=== PATIENT | female | born 1970 | race Caucasian/White ===

== ENCOUNTER → 2021-04-25 13:29 | Outpatient (CLI) | payer BC, SELFPAY ==
--- NOTE | ~2021-04-25 | XR_ITS ---
EXAMINATION: XR elbow RT min 3V INDICATION: Right elbow pain TECHNIQUE: Four views of the right elbow were obtained. COMPARISON: None available FINDINGS: There is no fracture, dislocation, or subluxation. The joint space is normal. There is no j oint effusion. An exostosis is noted at the anteromedial aspect of the distal humeral shaft. IMPRESSION: 1. No acute osseous abnormality. Reviewed, dictated and finalized at location A.
== END ==
PROVIDERS: PCP Family Medicine; Visit Provider Physician Assistant
DX: M25.521 Pain in right elbow (principal)
CPT/HCPCS: 73080

== ENCOUNTER 2022-05-29 01:07 | Day surgery (SDC) | payer BC, SELFPAY ==
[2022-05-16 14:04] VITALS: BMI 22.8
[2022-05-29 10:34] VITALS: BP 110/64; PULSE 64; RESP 18; TEMP 36.6; O2SAT 100
[2022-05-29] MEDS: LACTATED RINGERS 1,000 ML 150 ML IV CONT (10:46)
--- NOTE | 2022-05-29 10:59 | WPDANESEPPF ---
Anes - Initial Pre Proc Eval Procedure: Operation Date: 05/29/22 13:45 Proposed Procedures p Screening Colonoscopy - Angel Alejo MD Date/Time: 05/29/22 10:59 Surgeon: Angel Alejo MD Pre Op Diagnosis: family hx colon ca, neoplasm screening Patient Data Age: 51 Gender: F Height: 1.73 m Weight: 68.9 kg Last Vital Signs Temp 97.9 F 05/29/22 10:34 Pulse 64 05/29/22 10:34 Resp 18 05/29/22 10:34 BP 110/64 05/29/22 10:34 Pulse Ox 100 05/29/22 10:34 O2 Del Method Room Air 05/29/22 10:34 Allergies Allergy/AdvReac Type Severity Reaction Status Date / Time No Known Allergies Allergy Mild Verified 05/29/22 10:31 Home Medications Medication Instructions Recorded Confirmed Type ascorbic acid (vitamin C) 1,000 mg 1 gm PO DAILY 05/15/20 05/16/22 History tablet cholecalciferol (vitamin D3) 50 50 mcg PO DAILY 05/15/20 05/16/22 History mcg (2,000 unit) capsule (Vitamin D3) progesterone micronized 200 mg 200 mg PO BID 05/15/20 05/16/22 History capsule blood-glucose meter #1 ea 12/04/20 05/16/22 Rx ascorbate calcium-calcium 1 tablet PO DAILY 05/16/22 05/16/22 History pantothen-quercet 100 mg-100 mg-50 mg tablet calcium polycarbophil 625 mg 1,250 mg PO DAILY 05/16/22 05/16/22 History tablet (FiberCon) cyanocobalamin (vitamin B-12) 500 1,000 mcg PO DAILY 05/16/22 05/16/22 History mcg tablet (B-12 DOTS) folic acid 800 mcg tablet 1,600 mcg PO DAILY 05/16/22 05/16/22 History letrozole 2.5 mg tablet 15 mg PO ONCE 05/16/22 05/16/22 History magnesium 200 mg tablet 200 mg PO DAILY 05/16/22 05/16/22 History melatonin 3 mg tablet 3 mg PO HS PRN Sleep 05/16/22 05/16/22 History omega 3-dha 120 mg-epa 180 mg-fish 2 cap PO DAILY 05/16/22 05/16/22 History oil 600 mg capsule (Extreme [place]-3) pyridoxine (vitamin B6) 500 mg 500 mg PO DAILY 05/16/22 05/16/22 History tablet vit [id number] <1mg-diet1 1 tablet PO DAILY 05/16/22 05/16/22 History tablet vitamin E 100 unit capsule 165 mg PO DAILY 05/16/22 05/16/22 History vitamin K2 45 mcg capsule 45 mcg PO DAILY 05/16/22 05/16/22 History Patient hx anesthesia problems: none Family hx anesthesia problems: none Results Review: All pre-operative results and documents have been reviewed as part of the pre-operative evaluation. [facility] Family History Family History Grandparent Diabetes mellitus Hypertension Family history of cardiovascular disease Cerebrovascular accident Family history of kidney disease Carcinoma of colon Family history of coronary artery disease Father Family history of malignant neoplasm of urinary bladder, Onset Age: 60 Social History Social History Smoking status: Never smoker Alcohol intake: current Drinks per week: 2 Substance use: never Substance use type: does not use Living arrangements: with family Spiritual care concerns: No Anes - Eval Final PreProcedure Day of Procedure 05/29/22 10:59 Patient weight: normal Heart: regular rate and rhythm Lungs: clear to auscultation Airway: Mallampati scale class II Neurological: alert and oriented Last oral intake: >/= 8 hours ASA classification: II Emergent: no Anesthetic plan: proceed Anesthesia type and monitoring: general GIVS and standard monitoring Results Review: All pre-operative results and documents have been reviewed as part of the pre-operative evaluation. Informed Consent: The patient's anesthetic plan and its attendant risks and benefits were discussed with the patient/family/POA. Questions were solicited and answers provided to the satisfaction of the patient/family/POA.
--- NOTE | 2022-05-29 11:27 | PM.IMHP ---
H&P: HPI History of Present Illness Date/Time: 05/29/22 11:27 Chief Complaint: Neoplasia screening. Narrative: This is a 51-year-old white female patient presents for screening colonoscopy. Patient reports her weight appetite bowel movements are normal. She occasionally will spot a small amount of bright red blood per rectum attributed to hemorrhoids in the past. She states that her bowel habits are relatively normal. Family history is significant for grandmother and an aunt to have had colon cancer. patient is unaware of any first-degree relatives with polyps or cancer. Review of Systems Review of Systems: Review of systems noncontributory. [facility] Family History Family History Grandparent Diabetes mellitus Hypertension Family history of cardiovascular disease Cerebrovascular accident Family history of kidney disease Carcinoma of colon Family history of coronary artery disease Father Family history of malignant neoplasm of urinary bladder, Onset Age: 60 Social History Social History Smoking status: Never smoker Alcohol intake: current Drinks per week: 2 Substance use: never Substance use type: does not use Living arrangements: with family Spiritual care concerns: No Meds Home Medications and Allergies Home Medications Medication Instructions Recorded Confirmed Type ascorbic acid (vitamin C) 1,000 mg 1 gm PO DAILY 05/15/20 05/16/22 History tablet cholecalciferol (vitamin D3) 50 50 mcg PO DAILY 05/15/20 05/16/22 History mcg (2,000 unit) capsule (Vitamin D3) progesterone micronized 200 mg 200 mg PO BID 05/15/20 05/16/22 History capsule blood-glucose meter #1 ea 12/04/20 05/16/22 Rx ascorbate calcium-calcium 1 tablet PO DAILY 05/16/22 05/16/22 History pantothen-quercet 100 mg-100 mg-50 mg tablet calcium polycarbophil 625 mg 1,250 mg PO DAILY 05/16/22 05/16/22 History tablet (FiberCon) cyanocobalamin (vitamin B-12) 500 1,000 mcg PO DAILY 05/16/22 05/16/22 History mcg tablet (B-12 DOTS) folic acid 800 mcg tablet 1,600 mcg PO DAILY 05/16/22 05/16/22 History letrozole 2.5 mg tablet 15 mg PO ONCE 05/16/22 05/16/22 History magnesium 200 mg tablet 200 mg PO DAILY 05/16/22 05/16/22 History melatonin 3 mg tablet 3 mg PO HS PRN Sleep 05/16/22 05/16/22 History omega 3-dha 120 mg-epa 180 mg-fish 2 cap PO DAILY 05/16/22 05/16/22 History oil 600 mg capsule (Extreme [place]-3) pyridoxine (vitamin B6) 500 mg 500 mg PO DAILY 05/16/22 05/16/22 History tablet vit [id number] <1mg-diet1 1 tablet PO DAILY 05/16/22 05/16/22 History tablet vitamin E 100 unit capsule 165 mg PO DAILY 05/16/22 05/16/22 History vitamin K2 45 mcg capsule 45 mcg PO DAILY 05/16/22 05/16/22 History Allergies Allergy/AdvReac Type Severity Reaction Status Date / Time No Known Allergies Allergy Mild Verified 05/29/22 10:31 Vital Signs Vital Signs - 24 hr 05/29/22 10:34 Temperature 97.9 F Pulse Rate 64 Respiratory Rate 18 Blood Pressure 110/64 Pulse Oximetry 100 Oxygen Delivery Room Air Exam Narrative: Physical exam reveals patient to be alert. Vital signs stable. HEENT exam is unremarkable. Patient is anicteric. Lungs are clear to auscultation and percussion. Heart is without murmur or extra sounds. Abdominal exam bowel sounds are present soft nontender with no hepatosplenomegaly. Digital external rectal exam is normal. Assessment and Plan Assessment and plan (1) Colon cancer screening: Code(s): Z12.11 - Encounter for screening for malignant neoplasm of colon Status: Acute Assessment and Plan: Patient presents for screening colonoscopy. She has distant family members with colon cancer. Plan for high-fiber diet. (2) Rectal bleeding: Code(s): K62.5 - Hemorrhage of anus and rectum Status: Acute
[2022-05-29 11:55] VITALS: BP 97/56; PULSE 62; RESP 17; O2SAT 100
[2022-05-29 12:05] VITALS: BP 107/62; PULSE 60; RESP 18; O2SAT 100
[2022-05-29 12:15] VITALS: BP 116/71; PULSE 54; RESP 20; O2SAT 100
== END 2022-05-29 12:45 | disposition home or self-care (01) ==
PROVIDERS: Visit Provider Internal Medicine Gastroenterology
PROC: 0DJD8ZZ Inspection of Lower Intestinal Tract, Via Natural or Artificial Opening Endoscopic (ICD-10-PCS; CPT 45378; principal; 2022-05-29 13:45)
DX: Z12.11 Encounter for screening for malignant neoplasm of colon (principal); K62.5 Hemorrhage of anus and rectum; K64.8 Other hemorrhoids; Z80.0 Family history of malignant neoplasm of digestive organs
CPT/HCPCS: 45378; J2704; J7120

== ENCOUNTER 2022-08-13 10:07 | Outpatient (CLI) | payer BC, SELFPAY ==
--- NOTE | ~2022-08-13 | US_ITS ---
EXAMINATION: US OB <= 14 weeks fetus DATE: 08/13/2022 11:11 INDICATION: Threatened miscarriage. TECHNIQUE: Real-time transabdominal and transvaginal pelvic ultrasound was performed. COMPARISON: None. FINDINGS: TRANSABDOMINAL ULTRASOUND: The uterus measures 9.8 x 6.6 x 5.5 cm. TRANSVAGINAL ULTRASOUND: The endometrial complex measures 2.1 cm in thickness. There are 2 cysts in t he endometrial complex with mean diameters of 7 mm and 6 mm, respectively. No yolk sac or pole is identified. There are nabothian cysts in the cervix. The right ovary is not visualized. The left o vary measures 3.0 x 1.9 x 2.1 cm. There is no free fluid in the pelvis. IMPRESSION: 1. Two cysts in the endometrial complex which are indeterminate for gestational sacs. Spontaneous ab ortion and ectopic are not excluded. Serial beta hCGs are recommended. Reviewed, dictated and finalized at location A. CHECKERS AND CASHIERS SUPERVISOR IMPRESSION: 1. Two cysts in the endometrial complex which are indeterminate for gestationa l sacs. Spontaneous and ectopic are not excluded. Serial bet a hCGs are recommended.
== END 2022-08-13 10:08 | disposition home or self-care (01) ==
DX: O20.0 Threatened abortion (principal); Z3A.00 Weeks of gestation of pregnancy not specified
CPT/HCPCS: 76801

== ENCOUNTER → 2023-09-10 07:50 | Outpatient (CLI) | payer BC, SELFPAY ==
--- NOTE | ~2023-09-10 | US_ITS ---
EXAMINATION: US pelvic complete w TV DATE: 09/10/2023 08:19 INDICATION: Pelvic pain TECHNIQUE: Multiple transabdominal and endovaginal sonographic images of the pelvis were obtained. COMPARISON: 08/13/2022 FINDINGS: The uterus measures 9.1 x 4.8 x 4.0 cm. The endometrial complex measures 5 mm. The ovaries are not visualized however no adnexal abnormality is seen. There is no free fluid in the pelvis. IMPRESSION: 1. No sonographic correlate for the patient's symptoms. Reviewed, dictated and finalized at location L. ORIZATION SPECIALIST
== END ==
PROVIDERS: PCP Family Medicine; Visit Provider Obstetrics & Gynecology
DX: R10.2 Pelvic and perineal pain (principal)
CPT/HCPCS: 76830; 76856

== ENCOUNTER 2025-05-04 11:25 | Emergency (ER) | payer BC, SELFPAY ==
--- OUTSIDE RECORDS SUMMARY | 2025-05-04 11:27 | XMS_ITS | Encounter Summary ---
Author Organization [facility] Address [address] [place] [address] Care Team Providers Care Director Dance Name Role Phone Not Found, Stl Primary Care Provider Unavailabl e Encounter Details Date Type Department Care Team (Late st Contact Info) Description 06/20/2003 Outpatient Historical [facility] Internal [facility] [place] [address] [id number] Arsenio Romano MD NO ADDRESS ON FILE Social History Tobacco Use Types Packs/Day Years Used Date Smoking Tobacco: Never Assessed Comments Unknown Sex and Gender Information Value Date Recorded Sex Assigned at Not on file Legal Sex Female 4:55 AM FELT CHECKER Gender Identity Not on file Sexual Orientation Not on file documented as of this encounter Plan of Treatment Upcoming Encounters Date Type Department Care Team (Late st Contact Info) Description 06/01/2025 2:00 PM CDT Office Visit [facility] Primary [facility] [place] [address] [place] [address] Shukri Moore MD [address] [place] [address] documented as of this encounter Visit Diagnoses Not on filedocumented in this encounter Care Teams Director Dance Relationship Specialty Start Date End Date Not Found, Stl NO ADDRESS ON FILE PCP - General 10/11/12 documented as of this encounter
--- OUTSIDE RECORDS SUMMARY | 2025-05-04 11:27 | XMS_ITS | Clinical Summary ---
Author Organization [facility] [address] [place] [address] Phone Care Team Providers Care Reinforced Ironworker Name Role Phone Not Found, Stl Primary Care Provider Unavailabl e Allergies No known active allergies Medications loratadine (CLARITIN) 10 mg tablet Take 10 mg by mouth daily. Active OTHER Adrenal LF capsule 3 times daily Active OTHER Chaste tree,tab once daily Active OTHER Brevail,cap once daily Active OTHER Congaplex caps Activ e ASCORBIC ACID, VITAMIN C, ORAL Take by mouth. Active Zinc Gluconate 30 mg Tablet Take by mouth. Ac tive Active Problems No known active problems Encounters Date Type Department Care Team Description 05/02/2025 External Device Data STL ABSTRACTION Provider, Abstract 04/12/2025 External Device Data STL ABSTRACTION Provider, Abstract 04/12/2025 External Device Data STL ABSTRACTION Provider, Abstract 03/15/2025 External Device Data STL ABSTRACTION Provider, Abstract 02/21/2025 External Device Data STL ABSTRACTION Provider, Abstract 02/16/2025 External Device Data STL ABSTRACTION Provider, Abstract 02/15/2025 External Device Data STL ABSTRACTION Provider, Abstract from Last 3 Months Family History Medical History Relation Name Comments Cancer Father bladder cancer Heart Disease Maternal Grandfather Hypertension Maternal Grandfather Other Maternal Grandfather osteopo rosis Colon Cancer Maternal Grandmother Heart Disease Maternal Grandmother Hypertension Maternal Grandmother Colon Cancer Paternal Grandfather Heart Disease Paternal Grandfather Hypertension Paternal Grandfather Labor Paternal Grandfather Heart Disease Paternal Grandmother Hypertension Paternal Grandmother Other Paternal Grandmother osteopo rosis Breast Cancer Neg Hx Ovarian Cancer Neg Hx Relation Name Status Comments Father Maternal Grandfather Maternal Grandmother Paternal Grandfather Paternal Grandmother Social History Tobacco Use Types Packs/Day Years Used Date Smoking Tobacco: Never Smokeless Tobacco: Never Alcohol Use Standard Drinks/Week Comments Yes 0 (1 standard drink = 0.6 oz pur e alcohol) 0-2/week Comments No Sex and Gender Information Value Date Recorded Sex Assigned at Not on file Legal Sex Female 4:55 AM MARKET INVESTIGATOR Gender Identity Not on file Sexual Orientation Not on file Last Filed Vital Signs Vital Sign Reading Time Taken Comments Blood Pressure 120/74 10/17/2024 1:52 PM MARKET INVESTIGATOR Pulse 86 10/12/2012 2:27 PM MARKET INVESTIGATOR Temperature - - Respiratory Rate - - Oxygen Saturation - - Inhaled Oxygen Concentration - - Weight 72.6 kg (160 lb) 10/17/2024 1:52 PM MARKET INVESTIGATOR Height 172.7 cm (5' 8) 10/17/2024 1:52 PM MARKET INVESTIGATOR Body Mass Index 24.33 10/17/2024 1:52 PM MARKET INVESTIGATOR Plan of Treatment Upcoming Encounters Date Type Department Care Team (Late st Contact Info) Description 06/01/2025 2:00 PM CDT Office Visit [facility] [place] [address] [place] [address] Shukri Moore MD [address] [place] [address] Health Maintenance Due Date Last Done Comments DTAP/TDAP/TD VACCINES (1 - Tdap) 1990 HEPATITIS B VACCINES (1 of 3 - 19+ 3-dose series) 1990 HPV/Cotest (21-29) 1992 HPV/Cotest (30-65) 2001 FIT-DNA Q 3 years 2016 FIT/FOBT Q 1 year 2016 Flex Sig/CT Colonography Q 5 years 2016 ZOSTER VACCINE (1 of 2) 2021 INFLUENZA VACCINE (#1) 2025 09/27/2016 BREAST CANCER SCREENING 11/24/2025 11/24/19 25, 11/11/2024, 09/30/2023, Additional history exists CERVICAL CANCER SCREENING 08/18/2026 PAP SMEAR 08/18/2026 08/18/2023, 07/29, 06/08/2017, Additional history exists COLORECTAL SCREENING 03/26/2027 03/26/2017, 03/26/20 17 Colorectal Cancer Screening 03/26/2027 Procedures Procedure Name Priority Date/Time Associated Diagnosis Comments MAMMO 3D HUNTER SCREEN BILAT W OR WO CAD Routine 11/24/2024 Well woman exam with routine gynecological exam Encounter for screening mammogram for breast cancer from Last 3 Months or Most Recently Relevant to Health Maintenance Results * MAMMO 3D HUNTER SCREEN BILAT W OR WO CAD (11/24/2024) Anatomical Region Laterality Modality Breast Bilateral Mammography Martha Warren MD MAMMO ORDERABLES Final Result from Last 3 Months or Most Recently Relevant to Health Maintenance Insurance BS [employer] RX [employer]ER[employer] Commercial Care Teams Reinforced Ironworker Relationship Specialty Start Date End Date Not Found, Stl NO ADDRESS ON FILE PCP - General 10/11/12
--- OUTSIDE RECORDS SUMMARY | 2025-05-04 11:27 | XMS_ITS | Clinical Summary ---
Author Organization [facility] Address [address], [facility] [address] [place] [address] Phone Care Team Providers Care Cpc Name Role Phone Mahad Mora MD Primary Care Provider [phone] Angel Spaulding DO Unavailable [phone] Allergies No known active allergies Medications polyethylene glycol (MIRALAX) Powder Use entire 255g bottle with 64oz of clear liquid as directed for colonoscopy prep. 255 g 7 Active fluticasone (FLONASE) 50 MCG/ACT Suspension 1-2 Sprays by Nasal route daily. Use in each nostril as directed. Active Loratadine 10 MG Capsule Take 1 Cap by mouth daily. Active psyllium 0.52 GM Capsule Take by mouth. Acti ve cyanocobalamin 1000 MCG Tablet Take 1,000 mcg by mouth daily. Active Vitamin B-6 (PYRIDOXINE) 100 MG Tablet Take by mouth. A ctive Cholecalciferol (VITAMIN D-3 SUPER STRENGTH) 2000 UNIT Tablet Take by mouth. Activ e vitamin E (TOCOPHEROL) 200 UNIT Capsule Take 200 Units by mouth daily. Active Ascorbic Acid (VITAMIN C) 1000 MG Tablet Take by mouth. Active folic acid (FOLVITE) 800 MCG Tablet Take 800 mcg by mouth daily. Active Vit-Fe Fumarate-FA (NATACHA-RUL VITAMINS) 28-0.8 MG Tablet Take by mouth. Activ e Family History Medical History Relation Name Comments Bladder cancer Father Colon Cancer Maternal Grandmother Colon Cancer Paternal Grandfather Relation Name Status Comments Father Maternal Grandmother Paternal Grandfather Social History Tobacco Use Types Packs/Day Years Used Date Smoking Tobacco: Never Smokeless Tobacco: Never Alcohol Use Standard Drinks/Week Comments Yes 0 (1 standard drink = 0.6 oz pur e alcohol) Rare Comments Unknown Sex and Gender Information Value Date Recorded Sex Assigned at Not on file Legal Sex Female 11:28 AM CDT Gender Identity Not on file Sexual Orientation Not on file Plan of Treatment Health Maintenance Due Date Last Done Comments Hepatitis C Virus (HCV) Screening 1971 TdaP Immunization 1971 Hepatitis B Immunization (1 of 3 - 19+ 3-dose series) 1990 Pap Smear 1992 Cervical Cancer Screening (CCS) 2001 HPV/Cotest 2001 Cologuard 2016 Immunochemical Fecal Occult Blood 2016 Pneumococcal Immunization (5 0+ years) (1 of 1 - PCV) 2021 Zoster Immunization (1 of 2) 2021 Colonoscopy 03/26/2022 03/26/2017 Colorectal Cancer Screening 03/26/2022 SARS-COV-2 Immunization (1 - 2023- season) 2024 Influenza Immunization (#1) 2025 Respiratory Syncytial Virus (RSV) Immunization (Adult) (1 - 1-dose 75+ series) 2046 Human Papillomavirus (HPV) Immunization Aged Out No longer eligible b ased on patient's age to complete this topic Meningococcal Immunization (ACWY) Aged Out No longer eligible based on patient's age to complete this topic Rotavirus Immunization Aged Out No lo nger eligible based on patient's age to complete this topic Procedures Procedure Name Priority Date/Time Associated Diagnosis Comments COLONOSCOPY Routine 03/26/2017 from Last 3 Months or Most Recently Relevant to Health Maintenance Results * COLONOSCOPY (03/26/2017) Mahad Mora MD PROCEDURE/MINOR SURGICAL OR DERABLES Final Result from Last 3 Months or Most Recently Relevant to Health Maintenance Insurance [facility] Care Teams Cpc Relationship Specialty Start Date End Date Mahad Mora MD [address] [place] [address] PCP - General Family Medicine 03/11/17 Angel Spaulding DO [address] [place] [address] Gastroenterology 03/30/17
--- OUTSIDE RECORDS SUMMARY | 2025-05-04 11:27 | XMS_ITS | Encounter Summary ---
Author Organization [facility] Address [address] [place] [address] Care Team Providers Care Precision Devices Inspector/Tester Name Role Phone Not Found, Stl Primary Care Provider Unavailabl e Encounter Details Date Type Department Care Team (Late st Contact Info) Description 05/02/2025 External Device Data STL ABSTRACTION Provider, Abstract NO ADDRESS ON FILE Social History Tobacco Use Types Packs/Day Years Used Date Smoking Tobacco: Never Smokeless Tobacco: Never Alcohol Use Standard Drinks/Week Comments Yes 0 (1 standard drink = 0.6 oz pur e alcohol) 0-2/week Comments No Sex and Gender Information Value Date Recorded Sex Assigned at Not on file Legal Sex Female 4:55 AM INSIDE ACCOUNT REPRESENTATIVE Gender Identity Not on file Sexual Orientation Not on file documented as of this encounter Plan of Treatment Upcoming Encounters Date Type Department Care Team (Late st Contact Info) Description 06/01/2025 2:00 PM CDT Office Visit [facility] [place] [address] [place] [address] Shukri Moore MD [address] [place] [address] documented as of this encounter Visit Diagnoses Not on filedocumented in this encounter Additional Health Concerns Assessment Noted Time PHQ-9 Depression Total Score: 1 10/17/19 25 2:16 PM INSIDE ACCOUNT REPRESENTATIVE documented as of this encounter Care Teams Precision Devices Inspector/Tester Relationship Specialty Start Date End Date Not Found, Stl NO ADDRESS ON FILE PCP - General 10/11/12 documented as of this encounter
--- OUTSIDE RECORDS SUMMARY | 2025-05-04 11:27 | XMS_ITS | Clinical Summary ---
Author Organization [facility] Address [address] [place] [address] Care Team Providers Care Tree Fruit And Nut Crops Farmer Name Role Phone Stanley Mena MD Unavailable [phone] Regla Redmond MD Unavailable Unavailabl e Source Comments [facility],non-owned Affiliates and Associated Physician Practices is amultiple site organization consisting of ambulatory clinics and hospital sitesin [place], [place], [place] and [place]. This disclosure is being madepursuant to the Care Everywhere program and may not contain all information available regarding this patient. Last updated 18.[facility] Allergies Active Allergy Reactions Criticality Noted Date Comments Latex Rash Medium 08/18/2023 Medications * Be aware that medications may not be up to date on this document. Alwaysverify current medications with the patient. Sodium Chloride-Xylito l (XLEAR SINUS CARE SPRAY NA) Activ e fluticasone propionate (Flonase) 50 MCG/ACT nasal spray [place] 1 (one) spray to 2 (two) sprays into the nose once daily Active folic acid 800 MCG tablet Take 1 (one) tablet by mouth once daily Active loratadine (Claritin) 10 MG tablet Take 1 (one) tablet by mouth once daily 09/28/2008 Active Progesterone (Prometrium) 200 MG capsuleIndicati ons:Abnormal uterine bleeding Take 1 (one) capsule by mouth at bedtime as directed 30 capsule 3 08/18/2023 Active Active Problems Problem Noted Date Diagnosed Date S/P laparoscopy 08/19/2022 Ectopic , unspecifi ed location, unspecified whether intrauterine present 2022 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 Abnormal uterine bleeding 11/15/2021 Advanced maternal age in multigravida, first tri mester 03/05/2020 Missed ab 03/05/2020 Encounter to determine viability of pregna ncy 03/05/2020 Immunizations Immunization Administration Dates Next Due FLU VACCINE QUAD IIV4 PF ID 09/27/2016 Family History Medical History Relation Name Comments Cancer - Bladder Father Other - Cardiac Maternal Grandfather Cancer - Colon Maternal Grandmother Diabetes; unknown type Paternal Grandfather Other - Cardiac Paternal Grandfather Relation Name Status Comments Father Maternal Grandfather Maternal Grandmother Paternal Grandfather Social History Tobacco Use Types Packs/Day Years Used Date Smoking Tobacco: Never Smokeless Tobacco: Never Tobacco Cessation:Counseling Given: Not Answered Alcohol Use Standard Drinks/Week Comments Never 0 (1 standard drink = 0.6 oz pur e alcohol) Comments No Sex and Gender Information Value Date Recorded Sex Assigned at Not on file Legal Sex Female 4:12 PM BLADE ALIGNER Gender Identity Not on file Sexual Orientation Not on file Last Filed Vital Signs Vital Sign Reading Time Taken Comments Blood Pressure 116/72 08/18/2023 2:16 PM BLADE ALIGNER Pulse 66 08/19/2022 1:30 PM BLADE ALIGNER Temperature 36.8 C (98.2 F) 08/19/2022 1:30 PM BLADE ALIGNER Respiratory Rate 16 08/19/2022 1:00 PM BLADE ALIGNER Oxygen Saturation 100% 08/19/2022 1:30 PM BLADE ALIGNER Inhaled Oxygen Concentration - - Weight 73.5 kg (162 lb) 08/18/2023 2:16 PM BLADE ALIGNER Height 172.7 cm (5' 8) 2022 9:50 PM BLADE ALIGNER Body Mass Index 24.63 2022 9:50 PM BLADE ALIGNER Plan of Treatment Health Maintenance Due Date Last Done Comments COLOGUARD (AGES 45-75) - COLON CA SCREENING 1971 COLON MONITORING 1971 COLONOSCOPY - COLON CA SCREENING 1971 CT COLONOGRAPHY - COLON CA SCREENING 1971 Colorectal Cancer Screening 1971 FIT - COLON CA SCREENING 1971 FLEX SIG - COLON CA SCREENING 1971 LIPID TESTING 1971 HIV SCREENING 1986 HEPATITIS C SCREENING 08/12/1989 DTAP/TDAP/TD VACCINES (1 - Tdap) 1990 HEPATITIS B VACCINE (1 of 3 - 19+ 3-dose series) 1990 PNEUMOCOCCAL VACCINE 50+ (1 of 1 - PCV) 2021 ZOSTER VACCINE (1 of 2) 2021 COVID-19 VACCINE (1 - 2023- season) 2024 DEPRESSION SCREENING 09/28/2024 MAMMOGRAM 09/30/2024 09/30/2023, 11/2023, 09/30/2023 (Done Outside Per Report), Additional history exists INFLUENZA VACCINE (#1) 2025 09/27/2016 PAP with HPV 08/18/2028 08/18/2023, 08/12/2022 HIB VACCINE Aged Out No longer eligi ble based on patient's age to complete this topic HPV VACCINE Aged Out No longer eligi ble based on patient's age to complete this topic MENINGOCOCCAL (Group B) VACCINE SHARED DECISION-MAKING Aged Out No longer eligible based on patient's age to complete this topic MENINGOCOCCAL GROUPS A/C/Y/W VACCINE Aged Out No longer eligible based on patient's age to complete this topic Procedures Procedure Name Priority Date/Time Associated Diagnosis Comments PAP IG LB RFLX HPV APTIMA ASCU Routine 08/18/2023 3:51 PM BLADE ALIGNER Well woman exam with routine gynecological exam from Last 3 Months or Most Recently Relevant to Health Maintenance Results * PAP IG LB RFLX HPV APTIMA ASCU (08/18/2023 3:51 PM BLADE ALIGNER) Diagnosis [facility] INSURANCE BILL Comment:NEGATIVE FOR INTRAEP ITHELIAL LESION OR MALIGNANCY. Specimen Adequacy [facility] INSURANCE BILL Comment: Satisfactory for evaluation. Endocervical and/or squamous metaplastic cells (endocervical component) are present. Clinician Provided ICD10 [facility] INSURANCE BILL Comment: Z01.419 R10.2 N93.9 Performed by [facility] INSURANCE BILL Comment:Vaibhav Bauman Cytot echnologist (ASCP) Comment . [facility] INSURANCE BILL Note [facility] INSURANCE BILL Comment: The Pap smear is a screening test designed to aid in the detection of premalignant and malignant conditions of the uterine cervix. It is not a diagnostic procedure and should not be used as the sole means of detecting cervical cancer. Both false-positive and false-negative reports do occur. . [facility] CPT Code Automation [facility] INSURANCE BILL Comment: This liquid based ThinPrep(R) pap test was screened with the use of an image guided system. Note [facility] INSURANCE BILL Comment: The HPV DNA reflex criteria were not met with this specimen result therefore, no HPV testing was performed. . Pathology/Cytolog y PART OF UTERINE CERVIX / Unknown 08/18/2023 3:51 PM BLADE ALIGNER 08/18/2023 Narrative [facility] INSURANCE BILL - 08/22/2023 12:06 AM BLADE ALIGNER Source.............Cervix No. of containers..01 ThinPrep Vial Resulting Agency Comment Lab Testing performed at: [address] [id number] Stanley Mena MD LAB - PATHOLOGY/CYTOLOGY VANDANA JOINER Final Result [facility] B[facility] [address] [place] [address] from Last 3 Months or Most Recently Relevant to Health Maintenance [place] [address] ANTHEM Care Teams Tree Fruit And Nut Crops Farmer Relationship Specialty Start Date End Date Stanley Mena MD [facility] [address] [facility] [address] [place] [address] Broom Worker Obstetrics and Gynecology 11/13/21 Regla Redmond MD [address] [place] [address] Obstetrics and Gynecology 08/12/22
--- OUTSIDE RECORDS SUMMARY | 2025-05-04 11:27 | XMS_ITS | Encounter Summary ---
Author Organization [facility] Address [address] [place] [address] Care Team Providers Care Steel Pickler Name Role Phone Not Found, Stl Primary Care Provider Unavailabl e Encounter Details Date Type Department Care Team (Latest Contact Info) Description 03/28/2003 Outpatient Historical HIS [facility] AKRSTEN Romano, MD Arsenio NO ADDRESS ON FILE SKIN SENSATION DISTURB (Primary Dx) Social History Tobacco Use Types Packs/Day Years Used Date Smoking Tobacco: Never Assessed Comments Unknown Sex and Gender Information Value Date Recorded Sex Assigned at Not on file Legal Sex Female 4:55 AM AVIATION SUPPORT EQUIPMENT REPAIRER Gender Identity Not on file Sexual Orientation Not on file documented as of this encounter Plan of Treatment Upcoming Encounters Date Type Department Care Team (Late st Contact Info) Description 06/01/2025 2:00 PM CDT Office Visit [facility] Primary Care [place] [address] [place] [address] Shukri Moore MD [address] [place] [address] documented as of this encounter Visit Diagnoses Diagnosis Disturbance of skin sensation- Primary documented in this encounter Care Teams Steel Pickler Relationship Specialty Start Date End Date Not Found, Stl NO ADDRESS ON FILE PCP - General 10/11/12 documented as of this encounter
--- OUTSIDE RECORDS SUMMARY | 2025-05-04 11:28 | XMS_ITS | Encounter Summary ---
Author Organization [facility] Address [address] [place] [address] Care Team Providers Care Medical Genetics Director Name Role Phone Not Found, Stl Primary Care Provider Unavailabl e Encounter Details Date Type Department Care Team (Late st Contact Info) Description 03/28/[address] [facility] Internal Medicine Medical [place] [address] [id number] Arsenio Romano MD NO ADDRESS ON FILE Social History Tobacco Use Types Packs/Day Years Used Date Smoking Tobacco: Never Assessed Comments Unknown Sex and Gender Information Value Date Recorded Sex Assigned at Not on file Legal Sex Female 4:55 AM PREFABRICATED HOUSES TRIMMER Gender Identity Not on file Sexual Orientation Not on file documented as of this encounter Plan of Treatment Upcoming Encounters Date Type Department Care Team (Late st Contact Info) Description 06/01/2025 2:00 PM CDT Office Visit [facility] Primary Care [place] [address] [place] [address] Shukri Moore MD [address] [place] [address] documented as of this encounter Visit Diagnoses Not on filedocumented in this encounter Care Teams Medical Genetics Director Relationship Specialty Start Date End Date Not Found, Stl NO ADDRESS ON FILE PCP - General 10/11/12 documented as of this encounter
--- OUTSIDE RECORDS SUMMARY | 2025-05-04 11:28 | XMS_ITS | Clinical Summary ---
Author Organization [facility] Address [address] [place] [address] Care Team Providers Care Field Administrator Name Role Phone Martha Lawrence MD Unavailable [phone] No, Physician Primary Care Provider [phone] Family History Medical History Relation Name Comments Colon cancer Maternal Grandmother Colon a denocarcinoma - (Added by TW Conv) Colon cancer Paternal Grandfather Colon a denocarcinoma - (Added by TW Conv) Relation Name Status Comments Maternal Grandmother Paternal Grandfather Social History Tobacco Use Types Packs/Day Years Used Date Smoking Tobacco: Never Comments Unknown Sex and Gender Information Value Date Recorded Sex Assigned at Not on file Legal Sex Female 4:13 AM REAL ESTATE INTERN Gender Identity Not on file Sexual Orientation Not on file Obstetrics History Plan of Treatment Health Maintenance Due Date Last Done Comments Cervical Cancer Screening 1971 Colon Cancer Screening-Colonoscopy 1971 Depression Screening 1971 Hepatitis C Screening 1971 Hepatitis B Screening 1989 Regular Well Visit/Exam 18-64 1989 DTaP/Tdap/Td Vaccine (1 - Tdap) 12/11/2005 12/10/2005 Zoster Vaccine (1 of 2) 2021 Influenza Vaccine (#1) 2025 8, 09/27/2016, 09/02/2012 Breast Cancer Screening-Mammogram 11/11/2025 11/11/2024, 11/11/2024, 09/30/2023, Additional history exists Pneumococcal vaccine <65 Aged Out No longer eligible based on patient's age to complete this topic Procedures Procedure Name Priority Date/Time Associated Diagnosis Comments SCREENING MAMMOGRAM BILATERAL W JOSEF Schedule Routine, Read Routine (OP Routine) 11/11/2024 12:59 PM REAL ESTATE INTERN Screening mammogram, encounter for from Last 3 Months or Most Recently Relevant to Health Maintenance Results * Screening Mammogram Bilateral W Josef (11/11/2024 12:59 PM REAL ESTATE INTERN) Anatomical Region Laterality Modality Breast Bilateral Mammography Narrative 11/14/2024 3:48 PM REAL ESTATE INTERN Mammogram Technique: Bilateral Digital Breast Tomosynthesis, Bilateral C-view 2D Screening mammogram. Views obtained: bilateral craniocaudal and bilateral mediolateral oblique. Computer Aided Detection was performed. Mammogram Findings: The present examination has been compared to prior imaging studies performed at [facility] on 04/24/2021, 06/24/2022 and 09/30/2023. The breasts are heterogeneously dense, which may obscure small masses. There is a focal asymmetry in the middle upper outer quadrant of the right breast. There is no suspicious abnormality in the left breast. Impression: Focal asymmetry in the right breast requires additional evaluation. Diagnostic mammogram and possible ultrasound of the right breast are recommended at this time. OVERALL FINAL ASSESSMENT: BI-RADS CATEGORY 0: Incomplete: Need additional imaging evaluation. Procedure Note Jo-Ann Plaza MD - 11/14/2024 Mammogram Technique: Bilateral Digital Breast Tomosynthesis, Bilateral C-view 2D Screening mammogram. Views obtained: bilateral craniocaudal and bilateral mediolateral oblique. Computer Aided Detection was performed. Mammogram Findings: The present examination has been compared to prior imaging studies performed at [facility] on 04/24/2021, 06/24/2022 and 09/30/2023. The breasts are heterogeneously dense, which may obscure small masses. There is a focal asymmetry in the middle upper outer quadrant of theright breast. There is no suspicious abnormality in the left breast. Impression: Focal asymmetry in the right breast requires additional evaluation. Diagnostic mammogram and possible ultrasound of the right breast are recommended at this time. OVERALL FINAL ASSESSMENT: BI-RADS CATEGORY 0: Incomplete: Need additional imaging evaluation. us Self Screening Mammogram IMG MAMMO PROCEDURES Fi nal Result from Last 3 Months or Most Recently Relevant to Health Maintenance [place] [employer] [place] [employer] [place] [employer] [place] Care Teams Field Administrator Relationship Specialty Start Date End Date No, Physician PCP - General 11/16/24 [place] [id number] [address] Obstetrics and Gynecology 11/11/24
[2025-05-04 11:29] VITALS: BP 131/70; PULSE 64; RESP 16; TEMP 36.3; O2SAT 100
--- NOTE | 2025-05-04 11:35 | ECG_ITS ---
Test Date: 2025-05-04 11:54:15 Measurements Intervals [place] Rate: 67 P: 81 OR: 163 QRS: 58 QRSD: 95 T: 48 QT: 382 QTc: 405 Interpretive Statements SINUS RHYTHM LEFT ATRIAL ENLARGEMENT INCOMPLETE RIGHT BUNDLE BRANCH BLOCK BASELINE ARTIFACT- I, III, AVL BORDERLINE ECG No previous ECG available for comparison Electronically Signed On 05-04-2025 12:10:41 CDT by Osito Reyes D.O.
[2025-05-04 11:49] VITALS: RESP 18
--- OUTSIDE RECORDS SUMMARY | 2025-05-04 12:27 | XMS_ITS | Clinical Summary ---
Author Organization [facility] [address] Address [address] [place] [address] Phone Care Team Providers Care Label Press Operator Name Role Phone Not Found, Stl Primary [...] on file Legal Sex Female 4:55 AM DIE OPERATOR Gender Identity Not on file Sexual Orientation Not on file Last Filed Vital Signs Vital Sign Reading Time Taken Comments Blood Pressure 120/74 10/17/2024 1:52 PM DIE OPERATOR Pulse 86 10/12/2012 2:27 PM DIE OPERATOR Temperature - - Respiratory Rate - - Oxygen Saturation - - Inhaled Oxygen Concentration - - Weight 72.6 kg (160 lb) 10/17/2024 1:52 PM DIE OPERATOR Height 172.7 cm (5' 8) 10/17/2024 1:52 PM DIE OPERATOR Body Mass Index 24.33 10/17/2024 1:52 PM DIE OPERATOR Plan of Treatment Upcoming Encounters Date Type Department Care Team (Late st Contact Info) Description 06/01/2025 2:00 PM CDT Office Visit [facility] Primary Care [place] [address] [place] [address] Shukri Moore MD [address] [place] [address] Health Maintenance Due Date Last [...] CHOICE [employer] Commercial Care Teams Label Press Operator Relationship Specialty Start Date End Date Not Found, Stl NO ADDRESS ON FILE PCP - General 10/11/12
--- OUTSIDE RECORDS SUMMARY | 2025-05-04 12:27 | XMS_ITS | Encounter Summary ---
Author Organization [facility] Address [address] [place] [address] Care Team Providers Care Motocross Racer Name Role Phone Not Found, Stl Primary [...] on file Legal Sex Female 4:55 AM GLUER MACHINE OPERATOR Gender Identity Not on file Sexual Orientation Not on file documented as of this encounter Plan of Treatment Upcoming Encounters Date Type Department Care Team (Late st Contact Info) Description 06/01/2025 2:00 PM CDT Office Visit [facility] Primary Care [place] [address] [place] [address] Shukri Moore MD [address] [place] [address] documented as of this encounter Visit Diagnoses Not on filedocumented in this encounter Additional Health Concerns Assessment Noted Time PHQ-9 Depression Total Score: 1 10/17/19 25 2:16 PM GLUER MACHINE OPERATOR documented as of this encounter Care Teams Motocross Racer Relationship Specialty Start Date End Date Not Found, Stl NO ADDRESS ON FILE PCP - General 10/11/12 documented as of this encounter
--- OUTSIDE RECORDS SUMMARY | 2025-05-04 12:27 | XMS_ITS | Clinical Summary ---
Author Organization [facility] Address [address], [facility] [address] [place] [address] Phone Care Team Providers Care Slat Pickler Name Role Phone Mahad Mora MD Primary Care Provider Angel Spaulding DO Unavailable [phone] Allergies No known active allergies Medications [...] Most Recently Relevant to Health Maintenance Insurance [facility] Care Teams Slat Pickler Relationship Specialty Start Date End Date Mahad Mora MD [address] [place] [address] PCP - General Family Medicine 03/11/17 Angel Spaulding DO [address] [place] [address] Gastroenterology 03/30/17
--- OUTSIDE RECORDS SUMMARY | 2025-05-04 12:28 | XMS_ITS | Clinical Summary ---
Author Organization [facility] Address [address] [place] [address] Care Team Providers Care Residence Leasing Agent Name Role Phone Martha Lawrence MD Unavailable [phone] No, Physician Primary Care Provider [phone] Family History Medical History Relation Name Comments [...] on file Legal Sex Female 4:13 AM PARAPROFESSIONAL AIDE TEACHER Gender Identity Not on file Sexual Orientation [...] Read Routine (OP Routine) 11/11/2024 12:59 PM PARAPROFESSIONAL AIDE TEACHER Screening mammogram, encounter for from Last 3 Months or Most Recently Relevant to Health Maintenance Results * Screening Mammogram Bilateral W Josef (11/11/2024 12:59 PM PARAPROFESSIONAL AIDE TEACHER) Anatomical Region Laterality Modality Breast Bilateral Mammography Narrative 11/14/2024 3:48 PM PARAPROFESSIONAL AIDE TEACHER Mammogram Technique: Bilateral Digital Breast Tomosynthesis, Bilateral C-view 2D Screening mammogram. Views obtained: bilateral craniocaudal and bilateral mediolateral oblique. Computer Aided Detection was performed. Mammogram Findings: The present examination has been compared to prior imaging studies performed at [facility] on 04/24/2021, 06/24/2022 and 09/30/2023. The breasts [...] compared to prior imaging studies performed at [facility] on 04/24/2021, 06/24/2022 and 09/30/2023. The breasts [...] Most Recently Relevant to Health Maintenance [place] [employer] [place] Care Teams Residence Leasing Agent Relationship Specialty Start Date End Date No, Physician PCP - General 11/16/24 [place] [id number] [address] Obstetrics and Gynecology 11/11/24
--- OUTSIDE RECORDS SUMMARY | 2025-05-04 12:28 | XMS_ITS | Encounter Summary ---
Author Organization [facility] Address [address] [place] [address] Care Team Providers Care Slot Floor Attendant Name Role Phone Not Found, Stl Primary Care Provider Unavailabl e Encounter Details Date Type Department Care Team (Latest Contact Info) Description 03/28/2003 Outpatient Historical HIS [facility] KARSTEN Romano, MD Arsen[place] NO ADDRESS ON FILE SKIN SENSATION DISTURB (Primary Dx) Social History Tobacco Use Types Packs/Day Years Used Date Smoking Tobacco: Never Assessed Comments Unknown Sex and Gender Information Value Date Recorded Sex Assigned at Not on file Legal Sex Female 4:55 AM QUAL RESEARCH MANAGER Gender Identity Not on file Sexual Orientation Not on file documented as of this encounter Plan of Treatment Upcoming Encounters Date Type Department Care Team (Late st Contact Info) Description 06/01/2025 2:00 PM CDT Office Visit [facility] Primary Care [place] [address] [place] [address] Shukri Moore MD [address] [place] [address] documented as of this encounter Visit Diagnoses Diagnosis Disturbance of skin sensation- Primary documented in this encounter Care Teams Slot Floor Attendant Relationship Specialty Start Date End Date Not Found, Stl NO ADDRESS ON FILE PCP - General 10/11/12 documented as of this encounter
--- OUTSIDE RECORDS SUMMARY | 2025-05-04 12:28 | XMS_ITS | Encounter Summary ---
Author Organization [facility] Address [address] [place] [address] Care Team Providers Care Mechanical Technical Service Specialist Name Role Phone Not Found, Stl Primary Care Provider Unavailabl e Encounter Details Date Type Department Care Team (Late st Contact Info) Description 06/20/2003 Outpatient Historical [facility] Internal Medicine Medical [place] [address] [phone] Arsenio Romano MD NO ADDRESS ON FILE Social History Tobacco Use Types Packs/Day Years Used Date Smoking Tobacco: Never Assessed Comments Unknown Sex and Gender Information Value Date Recorded Sex Assigned at Not on file Legal Sex Female 4:55 AM POLICE CAPTAIN Gender Identity Not on file Sexual Orientation Not on file documented as of this encounter Plan of Treatment Upcoming Encounters Date Type Department Care Team (Late st Contact Info) Description 06/01/2025 2:00 PM CDT Office Visit [facility] Primary Care [place] [address] [place] [address] Shukri Moore MD [address] [place] [address] documented as of this encounter Visit Diagnoses Not on filedocumented in this encounter Care Teams Mechanical Technical Service Specialist Relationship Specialty Start Date End Date Not Found, Stl NO ADDRESS ON FILE PCP - General 10/11/12 documented as of this encounter
--- OUTSIDE RECORDS SUMMARY | 2025-05-04 12:28 | XMS_ITS | Clinical Summary ---
Author Organization [facility] Address [address] [place] [address] Care Team Providers Care Meter Installer Name Role Phone Stnaley Mena MD Unavailable [phone] Regla Redmond MD Unavailable Unavailabl e Source Comments [facility],non-owned Affiliates and Associated Physician Practices is amultiple site organization consisting of ambulatory clinics and hospital sitesin [place], [place], [place] and [place]. This disclosure is being madepursuant to the Care Everywhere program and may not contain all information available regarding this patient. Last updated 18.[facility] Allergies Active Allergy Reactions Criticality Noted Date Comments Latex Rash Medium 08/18/2023 Medications * Be aware that medications may not be up to date on this document. Alwaysverify current medications with the patient. Sodium Chloride-Xylito l (XLEAR SINUS CARE SPRAY NA) Activ e fluticasone propionate (Flonase) 50 MCG/ACT nasal spray [place] 1 (one) spray to 2 (two) sprays [...] on file Legal Sex Female 4:12 PM HISTOPATHOLOGIST Gender Identity Not on file Sexual Orientation Not on file Last Filed Vital Signs Vital Sign Reading Time Taken Comments Blood Pressure 116/72 08/18/2023 2:16 PM HISTOPATHOLOGIST Pulse 66 08/19/2022 1:30 PM HISTOPATHOLOGIST Temperature 36.8 C (98.2 F) 08/19/2022 1:30 PM HISTOPATHOLOGIST Respiratory Rate 16 08/19/2022 1:00 PM HISTOPATHOLOGIST Oxygen Saturation 100% 08/19/2022 1:30 PM HISTOPATHOLOGIST Inhaled Oxygen Concentration - - Weight 73.5 kg (162 lb) 08/18/2023 2:16 PM HISTOPATHOLOGIST Height 172.7 cm (5' 8) 2022 9:50 PM HISTOPATHOLOGIST Body Mass Index 24.63 2022 9:50 PM HISTOPATHOLOGIST Plan of Treatment Health Maintenance Due Date [...] HPV APTIMA ASCU Routine 08/18/2023 3:51 PM HISTOPATHOLOGIST Well woman exam with routine gynecological exam from Last 3 Months or Most Recently Relevant to Health Maintenance Results * PAP IG LB RFLX HPV APTIMA ASCU (08/18/2023 3:51 PM HISTOPATHOLOGIST) Diagnosis [facility] INSURANCE BILL Comment:NEGATIVE FOR INTRAEP ITHELIAL LESION OR MALIGNANCY. Specimen Adequacy [facility] INSURANCE BILL Comment: Satisfactory for evaluation. Endocervical and/or squamous metaplastic cells (endocervical component) are present. Clinician Provided ICD10 [facility] INSURANCE BILL Comment: Z01.419 R10.2 N93.9 Performed by [facility] INSURANCE BILL Comment:Vaibhav Bauman Cytot echnologist (ASCP) [...] UTERINE CERVIX / Unknown 08/18/2023 3:51 PM HISTOPATHOLOGIST 08/18/2023 Narrative [facility] INSURANCE BILL - 08/22/2023 12:06 AM HISTOPATHOLOGIST Source.............Cervix No. of containers..01 ThinPrep Vial Resulting Agency Comment Lab Testing performed at: [address] [id number] Stanley Mena MD LAB - PATHOLOGY/CYTOLOGY VANDANA JOINER Final Result [facility] B[facility] [address] [place] [address] from Last 3 Months or Most Recently Relevant to Health Maintenance [place] [address] ANTHEM Care Teams Meter Installer Relationship Specialty Start Date End Date Stanley Mena MD [facility] [address] [place] [address] Director Of Loss Prevention Obstetrics and Gynecology 11/13/21 Regla Redmond MD [address] [place] [address] Obstetrics and Gynecology 08/12/22
--- OUTSIDE RECORDS SUMMARY | 2025-05-04 12:28 | XMS_ITS | Encounter Summary ---
Author Organization [facility] Address [address] [place] [address] Care Team Providers Care Instructor Physical Education Name Role Phone Not Found, Stl Primary Care Provider Unavailabl e Encounter Details Date Type Department Care Team (Late st Contact Info) Description 03/28/2003 Outpatient Historical [facility]3] Internal Medicine Medical [place] [address] [phone] Arsenio Romano MD NO ADDRESS ON FILE Social History Tobacco Use Types Packs/Day Years Used Date Smoking Tobacco: Never Assessed Comments Unknown Sex and Gender Information Value Date Recorded Sex Assigned at Not on file Legal Sex Female 4:55 AM SITE DIRECTOR Gender Identity Not on file Sexual Orientation Not on file documented as of this encounter Plan of Treatment Upcoming Encounters Date Type Department Care Team (Late st Contact Info) Description 06/01/2025 2:00 PM CDT Office Visit [facility]3] Primary Care [place] [address] [place] [address] Shukri Moore MD [address] [place] [address] documented as of this encounter Visit Diagnoses Not on filedocumented in this encounter Care Teams Instructor Physical Education Relationship Specialty Start Date End Date Not Found, Stl NO ADDRESS ON FILE PCP - General 10/11/12 documented as of this encounter
--- NOTE | 2025-05-04 12:56 | ED.GENADULT ---
HPI - General Adult General Chief complaint: Unspecified Stated complaint: chest tightness x5 days Time Seen by Provider: 05/04/25 11:52 History of Present Illness HPI narrative: This is a 54-year-old female with no significant past medical history presents to ED for chest pain. Patient states that about a week ago, she was leaning over a chair and felt a slight twinge in her left chest that went straight through to her back. She has had intermittent pain since then to the area with movement and with deep breaths. No prior cardiac history that she is aware of. She did not try any medications for this. Related Data Home Medications ?Medication ?Instructions ?Recorded ?Confirmed ?Last Taken ?Type No Home Medications 01/21/24 01/21/24 Unknown History Allergies Allergy/AdvReac Type Severity Reaction Status Date / Time No Known Allergies Allergy Mild Verified 05/04/25 11:26 Review of Systems Review of Systems: Gen.: Denies fevers or chills Eyes: Denies eye pain or visual change ENT: Denies congestion Respiratory: Denies shortness of breath or cough CV: Chest pain. GI: Denies abdominal pain nausea, emesis or diarrhea denies burning, urgency, frequency or hematuria Musculoskeletal: Denies back pain or muscle pain Neuro: Denies numbness, tingling, weakness or focal weakness Skin: Denies rash Except as documented, all other systems reviewed and negative [facility] Surgical History Surgical History H/O dilation and curettage (~08/17/22) Family History Family History Grandparent Diabetes mellitus Hypertension Family history of cardiovascular disease Cerebrovascular accident Family history of kidney disease Carcinoma of colon Family history of coronary artery disease Father Family history of malignant neoplasm of urinary bladder, Onset Age: 60 Social History Social History Social History: caffeine 0-2 glasses of tea daily Smoking status: Never smoker Alcohol intake: current Drinks per week: 1 Substance use: never Substance use type: does not use Do You Feel Safe in your Home?: Yes Lack of Transportation: No Lack of Food: Never True Current Housing: I Have Housing Concerned About Future Housing: No Difficulty Paying Gas/Electric Bills: No Difficulty Paying for Meds: No Currently Unemployed: No Difficulty w/ Childcare or Family Care: No Living arrangements: with family Spiritual care concerns: No Exam Narrative: APPEARANCE: No acute distress, nontoxic, resting in bed EYES: EOMI HEENT: Normocephalic, atraumatic, OMM RESPIRATORY: No respiratory distress Clear to auscultation bilaterally with no rhonchi wheezing or rales. CARDIOVASCULAR: Regular rate and rhythm without murmurs rubs or gallops. Tenderness palpation to the left rib 7 anteriorly and posteriorly. ABDOMINAL: Soft, nontender, nondistended, no rebound or guarding MUSCULOSKELETAl: Moves all extremities. No clubbing, cyanosis or edema. NEURO: Awake and alert. Following commands, speech normal, no focal deficits SKIN:: Warm, dry. No rashes lesions or abrasions PSYCHIATRIC: Normal affect/mood, Course Vital Signs Vital signs: Vital Signs Temperature 97.4 F L 05/04/25 11:29 Pulse Rate 64 05/04/25 11:29 Respiratory Rate 16 05/04/25 11:29 Blood Pressure 131/70 05/04/25 11:29 Pulse Oximetry 100 05/04/25 11:29 Oxygen Delivery Room Air 05/04/25 11:29 Temperature 97.4 F L 05/04/25 11:29 Pulse Rate 64 05/04/25 11:29 Respiratory Rate 18 05/04/25 11:49 Blood Pressure 131/70 05/04/25 11:29 Pulse Oximetry 100 05/04/25 11:29 Oxygen Delivery Room Air 05/04/25 11:29 Medical Decision Making [facility] Narrative Medical decision making narrative: 54-year-old female with no significant past medical history presenting to the ED for pleuritic chest pain after linear answer chair week ago. EKG showed normal sinus rhythm rate of 67, normal axis, normal intervals, no acute ST or T-wave changes. She had reproducible chest tenderness on exam. VSS. Patient's EKGs and labs are without significant high risk changes. Cardiac risk factors reviewed. Patient is felt likely low risk for ACS and reasonable for further risk stratification testing as an outpatient. Pain was not sudden or maximal in onset without tearing or ripping quality. No other signs of symptoms suggest aortic dissection. Patient is felt to be a reasonable candidate for continued evaluation as an outpatient Vital Signs Vital Signs: Vital Signs Temperature 97.4 F L 05/04/25 11:29 Pulse Rate 64 05/04/25 11:29 Respiratory Rate 16 05/04/25 11:29 Blood Pressure 131/70 05/04/25 11:29 Pulse Oximetry 100 05/04/25 11:29 Oxygen Delivery Room Air 05/04/25 11:29 Temperature 97.4 F L 05/04/25 11:29 Pulse Rate 64 05/04/25 11:29 Respiratory Rate 18 05/04/25 11:49 Blood Pressure 131/70 05/04/25 11:29 Pulse Oximetry 100 05/04/25 11:29 Oxygen Delivery Room Air 05/04/25 11:29 ECG Data EKG #1: ECG completion date: 05/04/25 ECG completion time: 11:54 Prior ECG tracings: not available for review EKG Interpretation: normal rate, sinus rhythm, normal QRS and NL axis Discharge Plan Discharge Clinical Impression: Acute costochondritis Patient Disposition: Home Condition: Stable Instructions: Antibiotic Form, Costochondritis (DC) Additional Instructions: Take tylenol and ibuprofen for pain. You may try lidoderm patches or lidocaine gel for pain relief. Try heating pads. Follow up with PCP as scheduled. Patient Language: Portuguese Prescriptions: No Action No Home Medications Follow-up/Referrals: Myla,Dany Espinal DO [Primary Care Provider] -
[2025-05-04] MEDS: LIDOCAINE 5% PATCH 1 PATCH TRANSDERM (13:22)
[2025-05-04] MEDS: KETOROLAC 30 MG/ML VIAL (*BKC) IM (13:22)
[2025-05-04 13:26] VITALS: BP 118/77; PULSE 66; RESP 20; O2SAT 99
== END 2025-05-04 13:28 | disposition home or self-care (01) ==
PROVIDERS: Emergency Provider Student in an Organized Health Care Education/Training Program; PCP Family Medicine
DX: M94.0 Chondrocostal junction syndrome [Tietze] (principal); I45.10 Unspecified right bundle-branch block; R94.31 Abnormal electrocardiogram [ECG] [EKG]
CPT/HCPCS: 93005; 96372; 99283; A9270; J1885